=== PATIENT | male | born 1940 | race Caucasian/White ===

== ENCOUNTER 2022-07-09 10:52 | Inpatient (IN) | payer OTHER, SELFPAY ==
[2022-07-09] VITALS (12 sets, daily range): BP systolic 126–143; BP diastolic 64–80; PULSE 71–89; RESP 18–20; TEMP 36.6; O2SAT 87–92; BMI 21.2
--- NOTE | 2022-07-09 11:07 | ED_ITS ---
Documented by User: Minnie Bah MD 07/09/22 15:37 HPI - Extremity Problem General: Chief complaint: ER Hold Stated complaint: PITTING EDEMA Time Seen by Provider: 07/09/22 11:07 Source: patient History of Present Illness: This 82-year-old male with a history of COPD presents to the ER with bilateral pedal edema that he noticed on June 28 (12 days ago). It is not painful and there is no associated fever, nausea or vo miting. Patient reports that he gets short of breath on exertion. He does not use oxygen at home. It appears that he was seen in [place] a few weeks ago and was treated with Lasix. He reportedly signed out AMA. Patient denies cough or any other pertinent systemic symptoms. Associated symptoms: Deny chest pain Review of Systems Const: Denies: chills, body aches or change in appetite Eyes: Denies: change in vision or eye discharge ENMT: Denies: throat pain, dental pain or nasal discharge Card: Reports: edema (Bilateral pitting pedal edema.) and dyspnea on exertion; Denies: chest pain or lightheadedness : Denies: dysuria Musc: Denies: neck pain or back pain Neuro: Denies: headache(s) or weakness in extremities Psych: Denies: depression Sebas/Lymph: Denies: easy bruising All/Imm: Denies: urticaria, tongue swelling or facial swelling PFSH ED PFSH: Medical History (Updated 07/09/22 @ 14:52 by Miranda Carmichael MD) Atrial fibrillation Date of onset unknown but has been previously identified at outside facility Benign prostatic hyperplasia (BPH) with urinary urgency CAD (coronary artery disease) History of CABG at [place], [place] ~, possibly with prior stents CHF (congestive heart failure) First known clinical instance 06/27/2022 at outside facility Hypertension Nonspecific colitis 01/2022 descending and sigmoid colon per outside records Peripheral artery disease Surgical History (Updated 07/09/22 @ 14:45 by Miranda Carmichael MD) History of abdominal aortic aneurysm (AAA) repair History of appendectomy History of coronary artery bypass graft History of femoropopliteal bypass History of tonsillectomy Family History (Updated 07/09/22 @ 14:11 by Miranda Carmichael MD) Other Family history non-contributory Social History (Updated 07/09/22 @ 16:11 by Miranda Carmichael MD) Smoking and tobacco status: current every day smoker cigarettes Alcohol intake: never Substance/Drug Use: never Household members: none Marital status: / Marital status details: of 42 years, Carissa Walls, in June 2021 service: Yes branch: [employer] Pets and animals: No Additional social history: Family contact/person to notify is niece Dina (goes by Radha) [place] cell phone [phone] Physical Exam Const: COMMON NORMALS: no acute distress, patient oriented x3, no limitations and alert HENMT: COMMON NORMALS: normocephalic HEAD & SCALP: normocephalic Eye: COMMON NORMALS: EOMs intact bilaterally Neck/C-Spine: COMMON NORMALS: full ROM and supple Chest: COMMONS NORMALS: normal inspection of the chest Resp: COMMON NORMALS: normal respiratory effort, No retractions, No use of accessory muscles and clear to auscultation bilaterally AUSCULTATION: clear to auscultation bilaterally Cardio: COMMON NORMALS: regular rate, regular rhythm and No murmurs present (Cardio) RATE: regular rate RHYTHM: regular rhythm GI: COMMON NORMALS: Normal to inspection, nondistended, normoactive bowel sounds present and non-tender : COMMON NORMALS: Yes no CVA tenderness BLADDER/KIDNEY EXAM: Yes no CVA tenderness Back/Pelvis: COMMON NORMALS: no CVA tenderness and no thoracic nor lumbar tenderness Extremity: NARRATIVE EXTREMITY EXAM: Bilateral pitting pedal edema extending group home into the leg. No calf swelling or tenderness. Homans' sign is negative. GENERAL: Yes normal exam except as noted Neuro: COMMON NORMALS: patient oriented x3 and no focal motor deficits SENSORIUM/ORIENTATION: Yes alert Psych: COMMON NORMALS: mental status grossly normal and cooperative Course Vital Signs: Vital signs: Vital Signs Pulse Rate 71 07/09/22 16:39 Respiratory Rate 19 H 07/09/22 16:39 Blood Pressure 143/77 07/09/22 16:39 Pulse Oximetry 89 L 07/09/22 16:39 Oxygen Delivery Me thod 07/09/22 14:23 Oxygen Flow Rate 4 07/09/22 10:56 MDM - Extremity (Nontraumatic) Medical Decision Making Medical decision making: Patient presents with bilateral piting Pedal edema that started few weeks ago. He is hypoxic and requiring supplemental oxygen. He does not use oxygen at home. Chest x-ray reveals cardiomegaly and bilateral pleural effusion. BNP is over 31,000. Patient's presentation and findings are most consistent with CHF exacerbation. He tells me that he has no prior history of CHF. He will be admitted for further evaluation and management. Case discussed with Dr. Carmichael who accepted patient for admission. Lab Data 07/09/22 10:55 07/09/22 10:55 Radiology Impressions Chest X-Ray 07/09/22 11:28 IMPRESSION: 1. Cardiac enlargement with pulmonary vascular congestion and bibasal pleural effusions suggesting CHF. 2. Probable superimposed changes of emphysema and pulmonary fibrosis. Compressive atelectasis of the middle and lower lobes the right lung and probably the left lower lobe. Laboratory Results WBC 9.7 10^3/uL (4.0-10.0) 07/09/22 10:55 RBC 4.11 10^6/uL (4.1-5.3) 07/09/22 10:55 Hgb 10.5 g/dL (11.7-16.6) L 07/09/22 10:55 Hct 37.3 % (42.0-52.0) L 07/09/22 10:55 MCV 90.8 fl (80-94) 07/09/22 10:55 MCH 25.5 pg (28.0-34.0) L 07/09/22 10:55 MCHC 28.2 g/dL (30.0-36.0) L 07/09/22 10:55 RDW 16.1 % (12.1-15.1) H 07/09/22 10:55 Plt Count 210 10^3/cmm (130-400) 07/09/22 10:55 MPV 12.5 fL (7.4-10.4) H 07/09/22 10:55 Neut % (Auto) 83.3 % 07/09/22 10:55 Lymph % (Auto) 11.1 % 07/09/22 10:55 [place] % (Auto) 4.5 % 07/09/22 10:55 Eos % (Auto) 0.2 % 07/09/22 10:55 Baso % (Auto) 0.3 % 07/09/22 10:55 Neut # (Auto) 8.11 10^3/uL (1.8-7.7) H 07/09/22 10:55 Lymph # (Auto) 1.1 10^3/uL (0.8-4.8) 07/09/22 10:55 [place] # (Auto) 0.4 10^3/uL (0.2-0.9) 07/09/22 10:55 Eos # (Auto) 0.0 10^3/uL (0.0-0.8) 07/09/22 10:55 Baso # (Auto) 0.0 10^3/uL (0.0-0.1) 07/09/22 10:55 Nucleated RBC % (auto) 0 % 07/09/22 10:55 Nucleated RBCs # 0.0 /100WBC 07/09/22 10:55 Sodium 138 mmol/L (136-145) 07/09/22 10:55 Potassium 3.9 mmol/L (3.5-5.1) 07/09/22 10:55 Chloride 100 mmol/L (98-107) 07/09/22 10:55 Carbon Dioxide 26 mmol/L (22-29) 07/09/22 10:55 Anion Gap 15.9 (5-19) 07/09/22 10:55 BUN 17 mg/dL (8-23) 07/09/22 10:55 Creatinine 1.2 mg/dL (0.7-1.2) 07/09/22 10:55 GFR Calculation Not Reportable 07/09/22 10:55 Glucose 118 mg/dL (65-115) H 07/09/22 10:55 Calculated Osmolality 289 mOsm/kg (285-295) 07/09/22 10:55 Calcium 9.2 mg/dL (8.5-10.5) 07/09/22 10:55 Total Bilirubin 0.4 mg/dL (0.15-1.2) 07/09/22 10:55 AST 12 U/L (0-40) 07/09/22 10:55 ALT < 5 U/L (0-41) 07/09/22 10:55 Alkaline Phosphatase 133 U/L (40-130) H 07/09/22 10:55 Troponin T Gen 5 ng/L 53 ng/L (0-15) H 07/09/22 13:02 NT-Pro-B Natriuret Pep 45711 pg/mL (0-450) H 07/09/22 10:55 Total Protein 7.5 g/dL (6.6-8.7) 07/09/22 10:55 Albumin 4.4 g/dL (3.5-5.2) 07/09/22 10:55 Globulin 3.1 g/dL (1.3-4.6) 07/09/22 10:55 Urine Color Yellow (Yellow) 07/09/22 13:02 Urine Appearance Clear (CLEAR) 07/09/22 13:02 Urine pH 5 (5-7) 07/09/22 13:02 Ur Specific Roundup 1.015 (1.005-1.030) 07/09/22 13:02 Urine Protein Neg (Negative) 07/09/22 13:02 Urine Glucose (UA) Norm (Normal) 07/09/22 13:02 Urine Ketones Negative (Negative) 07/09/22 13:02 Urine Blood 2+ (Negative) H 07/09/22 13:02 Urine Nitrate Negative (Negative) 07/09/22 13:02 Urine Bilirubin Neg (Negative) 07/09/22 13:02 Urine Urobilinogen Norm mg/dL (Negative) 07/09/22 13:02 Ur Leukocyte Esterase Negative (Negative) 07/09/22 13:02 Urine RBC 10-15 /hpf (0-2) H 07/09/22 13:02 Urine WBC 0-4 /hpf (0-5) H 07/09/22 13:02 Ur Squamous Epith Cells None /hpf (0-5) 07/09/22 13:02 Amorphous Sediment Not Reportable 07/09/22 13:02 Urine Bacteria Trace /hpf (NONE) 07/09/22 13:02 EKG Data EKG 1: Interpretation: Sinus rhythm with PVCs, rate of 66, normal axis, no STEMI. Discharge Plan Discharge Patient Disposition: Admitted As Inpatient Admit Provider: Miranda Carmichael Clinical Impression: Acute exacerbation of CHF (congestive heart failure) Condition: Stable Coding Level of Care Code ED Substation Operator Chief for Chg Fwd Exam Comprehensive Documented by User: Miranda Carmichael MD 07/09/22 17:23 HPI - Extremity Problem General: Chief complaint: ER Hold Stated complaint: PITTING EDEMA Time Seen by Provider: 07/09/22 11:07 History of Present Illness: This 82-year-old male with a history of COPD presents to the ER with bilateral pedal edema that he noticed on June 28 (12 days ago). It is not painful and there is no associated fever, nausea or vomiting. Patient reports that he gets short of breath on exertion. He does not use oxygen at home. It appears that he was seen in [place] a few weeks ago and was treated with Lasix. He reportedly signed out AMA. Patient denies cough or any other pertinent systemic symptoms. [facility] ED PFSH: Medical History (Updated 07/09/22 @ 14:52 by Miranda Carmichael MD) Atrial fibrillation Date of onset unknown but has been previously identified at outside facility Benign prostatic hyperplasia (BPH) with urinary urgency CAD (coronary artery disease) History of CABG at [place], [place] ~, possibly with prior stents CHF (congestive heart failure) First known clinical instance 06/27/2022 at outside facility Hypertension Nonspecific colitis 01/2022 descending and sigmoid colon per outside records Peripheral artery disease Surgical History (Updated 07/09/22 @ 14:45 by Miranda Carmichael MD) History of abdominal aortic aneurysm (AAA) repair History of appendectomy History of coronary artery bypass graft History of femoropopliteal bypass History of tonsillectomy Family History (Updated 07/09/22 @ 14:11 by Miranda Carmichael MD) Other Family history non-contributory Social History (Updated 07/09/22 @ 16:11 by Miranda Carmichael MD) Smoking and tobacco status: current every day smoker cigarettes Alcohol intake: never Substance/Drug Use: never Household members: none Marital status: / Marital status details: of 42 years, Carissa Walls, in June 2021 service: Yes branch: [employer] Pets and animals: No Additional social history: Family contact/person to notify is louise Arroyo (goes by Radha) [place] cell phone [phone] Course ED course: I, Dr Carmichael, was inadvertently added as a cosigner to this ED note. While I assumed care for an inpatient admission for Mr Cope, I was not involved in the emergency room evaluation and treatment of the patient otherwise. I did not provide any clinical care or guidance,, nor add to the content of this note prior to being notified about admission at approximately 12:40 PM today 07/09/2022. Any information that shows is being documented by me is shared documentation functionality of the system related to ED care. Vital Signs: Vital signs: Vital Signs Pulse Rate 71 07/09/22 16:39 Respiratory Rate 19 H 07/09/22 16:39 Blood Pressure 143/77 07/09/22 16:39 Pulse Oximetry 89 L 07/09/22 16:39 Oxygen Delivery Me thod 07/09/22 14:23 Oxygen Flow Rate 4 07/09/22 10:56 MDM - Extremity (Nontraumatic) Lab Data 07/09/22 10:55 07/09/22 10:55 Radiology Impressions Chest X-Ray 07/09/22 11:28 IMPRESSION: 1. Cardiac enlargement with pulmonary vascular congestion and bibasal pleural effusions suggesting CHF. 2. Probable superimposed changes of emphysema and pulmonary fibrosis. Compressive atelectasis of the middle and lower lobes the right lung and probably the left lower lobe. Laboratory Results WBC 9.7 10^3/uL (4.0-10.0) 07/09/22 10:55 RBC 4.11 10^6/uL (4.1-5.3) 07/09/22 10:55 Hgb 10.5 g/dL (11.7-16.6) L 07/09/22 10:55 Hct 37.3 % (42.0-52.0) L 07/09/22 10:55 MCV 90.8 fl (80-94) 07/09/22 10:55 MCH 25.5 pg (28.0-34.0) L 07/09/22 10:55 MCHC 28.2 g/dL (30.0-36.0) L 07/09/22 10:55 RDW 16.1 % (12.1-15.1) H 07/09/22 10:55 Plt Count 210 10^3/cmm (130-400) 07/09/22 10:55 MPV 12.5 fL (7.4-10.4) H 07/09/22 10:55 Neut % (Auto) 83.3 % 07/09/22 10:55 Lymph % (Auto) 11.1 % 07/09/22 10:55 [place] % (Auto) 4.5 % 07/09/22 10:55 Eos % (Auto) 0.2 % 07/09/22 10:55 Baso % (Auto) 0.3 % 07/09/22 10:55 Neut # (Auto) 8.11 10^3/uL (1.8-7.7) H 07/09/22 10:55 Lymph # (Auto) 1.1 10^3/uL (0.8-4.8) 07/09/22 10:55 [place] # (Auto) 0.4 10^3/uL (0.2-0.9) 07/09/22 10:55 Eos # (Auto) 0.0 10^3/uL (0.0-0.8) 07/09/22 10:55 Baso # (Auto) 0.0 10^3/uL (0.0-0.1) 07/09/22 10:55 Nucleated RBC % (auto) 0 % 07/09/22 10:55 Nucleated RBCs # 0.0 /100WBC 07/09/22 10:55 Sodium 138 mmol/L (136-145) 07/09/22 10:55 Potassium 3.9 mmol/L (3.5-5.1) 07/09/22 10:55 Chloride 100 mmol/L (98-107) 07/09/22 10:55 Carbon Dioxide 26 mmol/L (22-29) 07/09/22 10:55 Anion Gap 15.9 (5-19) 07/09/22 10:55 BUN 17 mg/dL (8-23) 07/09/22 10:55 Creatinine 1.2 mg/dL (0.7-1.2) 07/09/22 10:55 GFR Calculation Not Reportable 07/09/22 10:55 Glucose 118 mg/dL (65-115) H 07/09/22 10:55 Calculated Osmolality 289 mOsm/kg (285-295) 07/09/22 10:55 Calcium 9.2 mg/dL (8.5-10.5) 07/09/22 10:55 Total Bilirubin 0.4 mg/dL (0.15-1.2) 07/09/22 10:55 AST 12 U/L (0-40) 07/09/22 10:55 ALT < 5 U/L (0-41) 07/09/22 10:55 Alkaline Phosphatase 133 U/L (40-130) H 07/09/22 10:55 Troponin T Gen 5 ng/L 53 ng/L (0-15) H 07/09/22 13:02 NT-Pro-B Natriuret Pep 17131 pg/mL (0-450) H 07/09/22 10:55 Total Protein 7.5 g/dL (6.6-8.7) 07/09/22 10:55 Albumin 4.4 g/dL (3.5-5.2) 07/09/22 10:55 Globulin 3.1 g/dL (1.3-4.6) 07/09/22 10:55 Urine Color Yellow (Yellow) 07/09/22 13:02 Urine Appearance Clear (CLEAR) 07/09/22 13:02 Urine pH 5 (5-7) 07/09/22 13:02 Ur Specific Roundup 1.015 (1.005-1.030) 07/09/22 13:02 Urine Protein Neg (Negative) 07/09/22 13:02 Urine Glucose (UA) Norm (Normal) 07/09/22 13:02 Urine Ketones Negative (Negative) 07/09/22 13:02 Urine Blood 2+ (Negative) H 07/09/22 13:02 Urine Nitrate Negative (Negative) 07/09/22 13:02 Urine Bilirubin Neg (Negative) 07/09/22 13:02 Urine Urobilinogen Norm mg/dL (Negative) 07/09/22 13:02 Ur Leukocyte Esterase Negative (Negative) 07/09/22 13:02 Urine RBC 10-15 /hpf (0-2) H 07/09/22 13:02 Urine WBC 0-4 /hpf (0-5) H 07/09/22 13:02 Ur Squamous Epith Cells None /hpf (0-5) 07/09/22 13:02 Amorphous Sediment Not Reportable 07/09/22 13:02 Urine Bacteria Trace /hpf (NONE) 07/09/22 13:02 Discharge Plan Discharge Patient Disposition: Admitted As Inpatient Admit Provider: Miranda Carmichael Clinical Impression: Acute exacerbation of CHF (congestive heart failure) Condition: Stable Coding Level of Care Code ED Substation Operator Chief for Chg Fwd Exam Comprehensive
--- NOTE | 2022-07-09 11:28 | XR_ITS ---
WS: [id number] Exam: XR chest 1V portable [id number] Date/Time of Exam: 07/09/2022 11:33 AM Reason For Exam: bialteral pedal edema No priors. There is cardiac enlargement with pulmonary vascular congestion and bibasal pleural effusions suggest ing CHF. Superimposed interstitial changes and bullous emphysema noted. Signs of median sternotomy. N o pneumothorax. The mediastinum is not widened. Bony structures are intact. XR/XR chest 1V portable [id number] IMPRESSION: 1. Cardiac enlargement with pulmonary vascular congestion and bibasal pleural e ffusions suggesting CHF. 2. Probable superimposed changes of emphysema and pulmonary fibrosis. Compressi ve atelectasis of the middle and lower lobes the right lung and probably the l eft lower lobe.
[2022-07-09] MEDS: FUROsemide 10 mg/mL SDV 4mL 60 MG IVP (11:38)
[2022-07-09 11:45] LABS: Basophils % 0.3 %; Eosinophils % 0.2 %; Hematocrit 37.3 % (42.0-52.0); Hemoglobin 10.5 g/dL (11.7-16.6); Lymphocytes # 1.1 10^3/uL (0.8-4.8); Lymphocytes % 11.1 %; Mean Corpuscular HGB Conc 28.2 g/dL (30.0-36.0); Mean Corpuscular Hemoglobin 25.5 pg (28.0-34.0); Mean Corpuscular Volume 90.8 fl (80-94); Mean Platelet Volume 12.5 fL (7.4-10.4); Monocytes # 0.4 10^3/uL (0.2-0.9); Monocytes % 4.5 %; Neutrophils # 8.11 10^3/uL (1.8-7.7); Neutrophils % 83.3 %; Nucleated Red Blood Cells % 0 %; Platelet Count 210 10^3/cmm (130-400); Red Blood Count 4.11 10^6/uL (4.1-5.3); Red Cell Distribution Width 16.1 % (12.1-15.1); White Blood Count 9.7 10^3/uL (4.0-10.0)
[2022-07-09 12:09] LABS: Alanine Aminotransferase < 5 U/L (0-41); Albumin Level 4.4 g/dL (3.5-5.2); Alkaline Phosphatase 133 U/L (40-130); Anion Gap 15.9 (5-19); Aspartate Amino Transferase 12 U/L (0-40); Blood Urea Nitrogen 17 mg/dL (8-23); Calcium 9.2 mg/dL (8.5-10.5); Carbon Dioxide 26 mmol/L (22-29); Chloride 100 mmol/L (98-107); Globulin 3.1 g/dL (1.3-4.6); Glucose 118 mg/dL (65-115); Osmolality Calculated 289 mOsm/kg (285-295); Potassium 3.9 mmol/L (3.5-5.1); Sodium 138 mmol/L (136-145); Total Bilirubin 0.4 mg/dL (0.15-1.2); Total Protein 7.5 g/dL (6.6-8.7)
--- NOTE | 2022-07-09 12:41 | ECG_ITS ---
[facility] Test Date: 2022-07-09 Pat Name: Wilfrido Anderson Department: Room: Gender: Male Procedure Analyst: : 1940 Requested By: Minnie Garcia Order Number: [id number] Nica MD: Camilo Garner M.D. Measurements Intervals [place] Rate: 66 P: 0 CA: 0 QRS: 110 QRSD: 143 T: -14 QT: 494 QTc: 521 Interpretive Statements ATRIAL FIBRILLATION WITH ABERRANT CONDUCTION OR VENTRICULAR PREMATURE COMPLEXES RIGHT BUNDLE BRANCH BLOCK [120+ ms QRS DURATION, UPRIGHT V1, 40+ ms S IN I/aVL/V4/V5/V6] LEFT POSTERIOR FASCICULAR BLOCK [QRS AXIS > 109, INFERIOR Q] No previous ECG available for comparison Electronically Signed On 07-10-2022 7:41:46 ENGINEERING ASSISTANT by Camilo Garner M.D. [id number]
[2022-07-09 13:32] LABS: Troponin T (5th) Once 53 ng/L (0-15)
--- NOTE | 2022-07-09 13:32 | P.HP_ITS ---
Providers/Chief Complaint Admitting Physician: Miranda Carmichael MD Primary Care Provider: Jennie Cruz MD Chief Complaint: Pitting edema History of Present Illness Wilfrido Anderson is a 82 year old male who presented to the emergency room at the direction of the [place] clinic here in [place]. On June 27, patient presented originally to [facility] in [place], [place]. On that date he was complaining of not being able to get his pants on because of swelling in his legs and also reported black stools. He had episode of diarrhea in ED which was hemocult positive. His hemoglobin was found to be 6.2. He was admitted to the hospital and received 2 units of packed red blood cells, a unit of FFP as well as a unit of platelets. Platelets were not low on available labs. Posttransfusion hemoglobin was 8.3. His troponin was elevated at 0.077- 0.097, felt to be secondary to demand ischemia in the setting of anemia. BNP noted to be 21,400. He was hypoxic at the time and required oxygen therapy. He received Lasix in addition to blood products. Plan had been for an echocardiogram and general surgery consultation however patient opted to leave against medical advice before these could be performed. Outside records were obtained and reviewed. Evidently patient was following up at the [place] hospital today from that hospital stay because of continued lower extremity edema. I do not know if he was actually seen by a provider at the [facility] clinic but he was directed to the emergency room for further evaluation and care based on his presentation and complaints. The swelling has been going on for several weeks. He has no personal history of heart failure though diagnosis was suspected at [place]. He does have a history of coronary artery disease with bypass surgery in the at the [facility] in [facility]. He describes having a AAA repair and likely femoropopliteal bypass as well. Chronic medications have included a mlodipine and lisinopril along with aspirin therapy. He gets short of breath with minimal exertion. He describes 4-5 times a night nocturia. Does not really complain of orthopnea but does describe waking up a lot at night and not sleeping well. He has urinary urgency and frequency that has been escalating but denies other difficulties with his urinary stream. He denies any chest pain. No complaints of pain in his legs although the swelling is uncomfortable. No scrotal edema. He has had a nonproductive cough. No fever or chills. No nausea or vomiting. He continues to be constipated but denies continued melena. In the emergency room today patient was noted to to have bilateral lower extremity edema. His BNP was 31,595. Twelve-lead EKG showed atrial fibrillation at 66 bpm. I will note that review of records from [place] indicates that he had atrial fibrillation on EKGs at that time as well as on at least one prior EKG. Patient himself denies any knowledge of atrial fib rillation or heart failure. He does not recall the last time that he had any cardiac testing. Vital signs showed oxygen saturation as low as 87% on room air. Chest x-ray showed pulmonary edema with bilateral effusions and cardiomegaly. Patient was placed on 4 L of oxygen and given a dose of IV Lasix. Request was made for admission to hospitalist service. Review of Systems General: Reports: Other (As noted in HPI above) Eyes: Reports: blurry vision (Does not see well) ENMT: Reports: nasal congestion; Denies: throat pain Neuro: Reports: weakness in extremities (Generalized rather than focal); Denies: numbness in extremities Sebas/Lymph: Denies: easy bruising or easy bleeding Medications/Allergies Home Medications Medication Instructions Recorded Confirmed Last Taken Type amlodipine 10 mg tablet 10 mg PO DAILY 07/09/22 07/09/22 07/08/22 History aspirin 325 mg tablet 325 mg PO DAILY 07/09/22 07/09/22 07/08/22 History lisinopril 40 mg tablet 20 mg PO BID 07/09/22 07/09/22 07/08/22 History Allergies Allergy/AdvReac Type Severity Reaction Status Date / Time No Known Allergies Allergy Verified 07/09/22 11:38 PFSH Acute PFSH: Medical History (Updated 07/09/22 @ 14:52 by Miranda Carmichael MD) Atrial fibrillation Date of onset unknown but has been previously identified at outside facility Benign prostatic hyperplasia (BPH) with urinary urgency CAD (coronary artery disease) History of CABG at [place], [place] ~, possibly with prior stents CHF (congestive heart failure) First known clinical instance 06/27/2022 at outside facility Hypertension Nonspecific colitis 01/2022 descending and sigmoid colon per outside records Peripheral artery disease Surgical History (Updated 07/09/22 @ 14:45 by Miranda Carmichael MD) History of abdominal aortic aneurysm (AAA) repair History of appendectomy History of coronary artery bypass graft History of femoropopliteal bypass History of tonsillectomy Family History (Updated 07/09/22 @ 14:11 by Miranda Carmichael MD) Other Family history non-contributory Social History (Updated 07/09/22 @ 16:11 by Miranda Carmichael MD) Smoking and tobacco status: current every day smoker cigarettes Alcohol intake: never Substance/Drug Use: never Household members: none Marital status: / Marital status details: of 42 years, Carissa Walls, in June 2021 service: Yes branch: [employer] Pets and animals: No Additional social history: Family contact/person to notify is louise Arroyo (goes by Radha) [place] cell phone [phone] Vitals/I&O/Wt Last Vital Signs Pulse 82 07/09/22 10:56 Resp 18 07/09/22 10:56 BP 126/74 07/09/22 10:56 Pulse Ox 89 L 07/09/22 10:56 O2 Del Method 07/09/22 10:56 O2 Flow Rate 4 07/09/22 10:56 Weight last 48 hrs Weight 67.585 kg Physical Exam Narrative: Patient is awake and alert, able to provide history though some details are unknown. Mildly hard of hearing. Normocephalic, extraocular movements are intact, pupils are equal bilaterally, arcus senilis noted. Nasopharynx with some clear rhinorrhea. Oropharynx with moist mucous membranes, fair dentition. Neck is supple, JVD to the earlobe. Lungs with musical expiratory wheezes that do not clear with coughing, decreased right base more so than left base. Tachypnea noted after speaking in full sentences with some pursed lip breathing. No retractions. Cardiovascular exam reveals an irregular rhythm. Heart sounds are otherwise distant. Abdomen is soft, nontender with positive bowel sounds. Normal uncircumcised phallus. 4+ pitting edema appreciable to the sacral area posteriorly but does not involve the scrotum. Symmetric calves with no calf tenderness. Scattered bruises and areas of chronically sun exposed skin noted. [place] mucous membranes. Face is symmetric, speech clear, handgrip equal, no involuntary movements noted. Data 07/09/22 10:55 07/09/22 10:55 Other Labs: Radiology Impressions Chest X-Ray 07/09/22 11:28 IMPRESSION: 1. Cardiac enlargement with pulmonary vascular congestion and bibasal pleural effusions suggesting CHF. 2. Probable superimposed changes of emphysema and pulmonary fibrosis. Compressive atelectasis of the middle and lower lobes the right lung and probably the left lower lobe. Laboratory Results WBC 9.7 10^3/uL (4.0-10.0) 07/09/22 10:55 RBC 4.11 10^6/uL (4.1-5.3) 07/09/22 10:55 Hgb 10.5 g/dL (11.7-16.6) L 07/09/22 10:55 Hct 37.3 % (42.0-52.0) L 07/09/22 10:55 MCV 90.8 fl (80-94) 07/09/22 10:55 MCH 25.5 pg (28.0-34.0) L 07/09/22 10:55 MCHC 28.2 g/dL (30.0-36.0) L 07/09/22 10:55 RDW 16.1 % (12.1-15.1) H 07/09/22 10:55 Plt Count 210 10^3/cmm (130-400) 07/09/22 10:55 MPV 12.5 fL (7.4-10.4) H 07/09/22 10:55 Neut % (Auto) 83.3 % 07/09/22 10:55 Lymph % (Auto) 11.1 % 07/09/22 10:55 [place] % (Auto) 4.5 % 07/09/22 10:55 Eos % (Auto) 0.2 % 07/09/22 10:55 Baso % (Auto) 0.3 % 07/09/22 10:55 Neut # (Auto) 8.11 10^3/uL (1.8-7.7) H 07/09/22 10:55 Lymph # (Auto) 1.1 10^3/uL (0.8-4.8) 07/09/22 10:55 [place] # (Auto) 0.4 10^3/uL (0.2-0.9) 07/09/22 10:55 Eos # (Auto) 0.0 10^3/uL (0.0-0.8) 07/09/22 10:55 Baso # (Auto) 0.0 10^3/uL (0.0-0.1) 07/09/22 10:55 Nucleated RBC % (auto) 0 % 07/09/22 10:55 Nucleated RBCs # 0.0 /100WBC 07/09/22 10:55 Sodium 138 mmol/L (136-145) 07/09/22 10:55 Potassium 3.9 mmol/L (3.5-5.1) 07/09/22 10:55 Chloride 100 mmol/L (98-107) 07/09/22 10:55 Carbon Dioxide 26 mmol/L (22-29) 07/09/22 10:55 Anion Gap 15.9 (5-19) 07/09/22 10:55 BUN 17 mg/dL (8-23) 07/09/22 10:55 Creatinine 1.2 mg/dL (0.7-1.2) 07/09/22 10:55 GFR Calculation Not Reportable 07/09/22 10:55 Glucose 118 mg/dL (65-115) H 07/09/22 10:55 Calculated Osmolality 289 mOsm/kg (285-295) 07/09/22 10:55 Calcium 9.2 mg/dL (8.5-10.5) 07/09/22 10:55 Total Bilirubin 0.4 mg/dL (0.15-1.2) 07/09/22 10:55 AST 12 U/L (0-40) 07/09/22 10:55 ALT < 5 U/L (0-41) 07/09/22 10:55 Alkaline Phosphatase 133 U/L (40-130) H 07/09/22 10:55 Troponin T Gen 5 ng/L 53 ng/L (0-15) H 07/09/22 13:02 NT-Pro-B Natriuret Pep 89457 pg/mL (0-450) H 07/09/22 10:55 Total Protein 7.5 g/dL (6.6-8.7) 07/09/22 10:55 Albumin 4.4 g/dL (3.5-5.2) 07/09/22 10:55 Globulin 3.1 g/dL (1.3-4.6) 07/09/22 10:55 Urine Color Yellow (Yellow) 07/09/22 13:02 Urine Appearance Clear (CLEAR) 07/09/22 13:02 Urine pH 5 (5-7) 07/09/22 13:02 Ur Specific [place] 1.015 (1.005-1.030) 07/09/22 13:02 Urine Protein Neg (Negative) 07/09/22 13:02 Urine Glucose (UA) Norm (Normal) 07/09/22 13:02 Urine Ketones Negative (Negative) 07/09/22 13:02 Urine Blood 2+ (Negative) H 07/09/22 13:02 Urine Nitrate Negative (Negative) 07/09/22 13:02 Urine Bilirubin Neg (Negative) 07/09/22 13:02 Urine Urobilinogen Norm mg/dL (Negative) 07/09/22 13:02 Ur Leukocyte Esterase Negative (Negative) 07/09/22 13:02 Urine RBC 10-15 /hpf (0-2) H 07/09/22 13:02 Urine WBC 0-4 /hpf (0-5) H 07/09/22 13:02 Ur Squamous Epith Cells None /hpf (0-5) 07/09/22 13:02 Amorphous Sediment Not Reportable 07/09/22 13:02 Urine Bacteria Trace /hpf (NONE) 07/09/22 13:02 EKG 1: I personally reviewed and interpreted this EKG as follows: My Interpretation: Atrial fibrillation at 66 bpm without any acute ST segment changes, premature contractions noted Other data: Laboratory Tests 07/09/22 15:46 ABG pH 7.46 H ABG pCO2 39.3 ABG pO2 50.7 L ABG HCO3 28.0 H O2 Delivery Device Nc O2 Liters/Min 5.0 A&P Assessment and plan (1) CHF (congestive heart failure): New onset diagnosis, type unknown. EF unknown. History of coronary artery disease. No current or recent complaints of chest pain or pleurisy but significant dyspnea on exertion, edema and associated hypoxemia. Also describes nocturia and urinary frequency/urgency. Longtime smoker who does not have a formal diagnosis of COPD but it is within the differential as a contributing factor to hypoxemia. Similar symptoms and findings were identified when patient presented to [facility] on June 27 of this year. Patient does not recall the last time he had any form of cardiac testing. (2) Normocytic anemia: Current hemoglobin improved from recent low of 6.2 noted on June 27, 2022 when patient presented to [facility]. Records indicate that stool was Hemoccult positive. Patient describes melena. He received 2 units of packed red blood cells, a unit of FFP and a unit of platelets with posttransfusion hemoglobin of 8.3. Patient does not describe known potential source of blood loss beyond melena. Urine today with some microscopic hematuria. Patient does not recall last colonoscopy. Outside records do indicate that he had a nonspecific colitis noted during a hospitalization in January 2022 involving the descending and sigmoid colon. He has been on aspirin outpatient for some time. No known kidney disease. (3) Atrial fibrillation: Unclear duration though documented as present in outside records from earlier this month with a notation that at least one prior EKG had shown similar find ings. Rate controlled. Review of limited available [place] records indicates that he has had bradycardia in the past although details are unknown. Not on any chronic rate controlling agents or anticoagulation. Given anemia and heme positive stools requiring transfusion earlier this month, poor candidate for initiation of anticoagulation currently. (4) CAD (coronary artery disease): History of previous coronary artery bypass graft and possibly stents. Last known cardiac testing occurred at the [facility] in [facility] quite a few years ago. Patient denies any recent episodes of chest pain but has had progressively worsening dyspnea on exertion. Had some troponin elevation at outside facility June 27 and without significant delta and no EKG changes indicated and records reviewed. Does not follow regularly with a anesthesiology tech. Also with known history of peripheral artery disease and has had prior AAA repair and/or femoral-popliteal bypass based on available history. (5) Hypertension: Chronically on lisinopril and amlodipine. Currently with adequate control. (6) Benign prostatic hyperplasia (BPH) with urinary urgency: Based on patient's history has prostatic hypertrophy with urinary urgency and recent frequency. (7) Nicotine dependence, cigarettes, with other nicotine-induced disorders: Longstanding smoker of cigarettes, not interested in quitting. Does not carry a formal diagnosis of COPD, never used inhalers or required oxygen therapy in the past. Plan Microscopic hematuria of unclear current significance Borderline blood sugar without history of diabetes Lives alone Inpatient admission Telemetry monitoring IV diuresis with close monitoring of urine output and renal function Potassium supplementation Strict I's and O's and daily weights Patient is currently declining Maloney catheter but will consider; given degree of edema and current hypoxemia Maloney catheter would facilitate not only accurate monitoring of renal function and urine output but also help decrease exertion contributing to more acute drops in oxygen saturation with exertion presently Echocardiogram Serial cardiac enzymes were not initially ordered however timing of initial blood draw and subsequent first troponin order equated to 2 hours. I have placed individual orders for what will end up being a 0, 2-hour and 6-hour rough equivalent though we will have to calculate delta manually. Check lipid panel, A1c, TSH Serial electrolytes Continue lower dose of home ELGIN inhibitor presently Hold home amlodipine Monitor blood pressures for need to adjust therapy further Given recent heme positive stools, holding home aspirin at the moment; patient also a poor candidate for long-term anticoagulation until further monitoring or evaluation of GI tract for source of blood loss recently identified at outside facility Check TIBC, Hemoccult and baseline coagulation studies Monitor hemoglobin for drop and for signs of blood loss Oxygen therapy as needed to maintain oxygen saturations, weaning as able; current presumption is that hypoxemia is from degree of pulmonary edema though will need to monitor closely for improvement with diuresis. Could have a component of chronic hypoxemia related to undiagnosed COPD. Also within the differential is PE though patient a poor candidate presently for full anticoagulation. Check D-dimer If oxygen saturation does not improve with diuresis can consider more focused evaluation and treatment Breathing treatments if needed Nicotine patch has been ordered although patient has declined Start Flomax Bladder scan for baseline evaluation of urinary retention Follow-up pending urine culture Current complaints of urinary frequency and urgency are consistent with degree of fluid overload. No complaints of dysuria, fever nor elevation in white count so antibiotics have not been initiated for finding of microscopic hematuria. Stool softeners and laxatives if needed PPI for GI prophylaxis, particularly in light of recent need for transfusion and chronic aspirin use SCDs for DVT prophylaxis; no pharmacological DVT prophylaxis currently secondary to need for transfusion and hemoglobin as low as 6 earlier this month at an outside facility Supportive care otherwise Findings, concerns and treatment plans as outlined here have been reviewed with Mr. Flores he has been given an opportunity to ask questions. [facility] and possibly with cardiology locally. Mr. Anderson may require oxygen therapy upon discharge if he would be agreeable. Mr. Anderson had a recent suboptimal experience at an outside facility and stressed the importance of communication from providers regarding findings, testing and treatment in a way that he can understand as well as opportunities to ask questions. In terms of CODE STATUS, Mr. Anderson wishes to be ALLOWED NATURAL should his heart quit beating or if he were to require intubation and mechanical venti lation. He does not want aggressive life-saving interventions, especially if he is not able to provide information about whether or not he would want. He has reviewed this with his niece Radha Lord (phone number notated above and social history) whom he states has paperwork in place to make decisions for him should he not be able to. Attestations Medical Necessity Statement*: Anticipated stay greater than two midnights in this 82-year-old gentleman with clinically significant volume overload as described associated with hypoxemia and shortness of breath. He has a known history of coronary artery disease and a very recent indication of GI blood losses and significant anemia for which he received transfusion. He is not chronically on any form of diuretic, has not had any recent cardiac testing, and has been recently hospitalized at an outside facility with similar findings not further evaluated due to patient leaving facility. He requires inpatient monitoring, oxygen therapy, IV diuresis, further cardiac evaluation and other care as described. Coding Level of Care Code 09705 High MDM includes risk/complexity, reviewing previous or external records ([place] 06/27/22 admit and [facility] patient), reviewing test results, ordering lab/other test(s) (multiple as indicated above) and independently interpretating test(s) (not separately recorded) (EKG) and High Time for a total of 85 minutes, includes reviewing past or interval history, examining/interviewing patient, placing orders, counseling patient/family/other support, updating patient/family/other support, discussing plan of care with staff and documenting encounter Diagnoses CHF (congestive heart failure) I50.9 Normocytic anemia D64.9 Atrial fibrillation I48.91 CAD (coronary artery disease) I25.10 Hypertension I10 Benign prostatic hyperplasia (BPH) with urinary urgency N40.1; R39.15 Nicotine dependence, cigarettes, with other nicotine-induced disorders F17.218
[2022-07-09 13:50] LABS: Add Urine Microscopic? YES; Bilirubin Urine Neg (Negative); Blood Urine 2+ (Negative); Glucose Urine UA Norm (Normal); Ketones Urine Negative (Negative); Leukocyte Esterase Urine Negative (Negative); Nitrate Urine Negative (Negative); Protein Urine Neg (Negative); Specific Gravity, Urine 1.015 (1.005-1.030); Urine Appearance Clear (CLEAR); Urine Color Yellow (Yellow); Urobilinogen Urine Norm (Negative); pH Urine 5 (5-7)
[2022-07-09 13:51] LABS: Add Urine Culture? Yes; Bacteria Urine TRACE /hpf; WBC Urine 0-4 /hpf (0-5)
--- NOTE | 2022-07-09 15:16 | PC.NURSE ---
pt report called to Hussain SOLIS
[2022-07-09 15:57] LABS: ABG PCO2 39.3 mmHg (35-45); ABG PH Result 7.46 (7.35-7.45); Arterial Blood Gas Hematocrit 28.6 % (42-52); Base Excess ABG 3.9 mmol/L (-2.0-2.0); Blood Gas Allen Test Pos; Blood Gas Operator Identificat WALCI; Blood Gas Sample Site Radial, right; Blood Gas Sample Type Arterial; Oxygen Device NC; PO2 ABG 50.7 mmHg (80.0-100.0)
--- NOTE | 2022-07-09 16:05 | USCV_ITS ---
Wilfrido Anderson Age: 82 Gender: M : 1940 Exam Date: 07/09/2022 17:06 Ordering Phys: Miranda Carmichael MD Technologist: Tysno Redd Exam Location: [facility] Indication: new onset chf, hx cad/cabg BP: 134 / 80 HR: 79 Rhythm: Sinus Technical Quality: Adequate MEASUREMENTS (Male / Female) Normal Values 2D ECHO LV Diastolic Diameter PLAX 5.6 cm 4.2 - 5.9 / 3.9 - 5.3 cm LV Systolic Diameter PLAX 3.9 cm IVS Diastolic Thickness 0.8 cm 0.6 - 1.0 / 0.6 - 0.9 cm IVS Systolic Thickness 1.3 cm LVPW Diastolic Thickness 1.0 cm 0.6 - 1.0 / 0.6 - 0.9 cm LVPW Systolic Thickness 1.6 cm LVOT Diameter 2.0 cm LV Ejection Fraction 2D Teich 58.1 % LV Ejection Fraction MOD 2C 41.5 % LV Ejection Fraction 2C AL 43.2 % LA Diameter 4.5 cm LA Width 4.0 cm LA Height 5.3 cm RA Width 3.8 cm RA Height 5.2 cm Aorta at Sinotubular Diameter 2.3 cm IVC Diameter 2.0 cm M-MODE Aortic Annulus Diameter 2.8 cm LA Ao Ratio MM 1.4 MV E Point Septal Separation 1.4 cm DOPPLER AV Peak Velocity 132.3 cm/s LVOT Peak Velocity 89.0 cm/s AV Area Cont Eq vti 2.4 cm squared AV Area Cont Eq pk 2.1 cm squared MV Peak Velocity 137.0 cm/s MV Area PHT 9.2 cm squared Mitral E to A Ratio 2.4 MV E' Velocity 54.5 cm/s Mitral E to MV E' Ratio 11.6 Mitral E to LV E' Lateral Ratio 10.3 Mitral E to LV E' Septal Ratio 13.5 TR Peak Velocity 307.5 cm/s TR Peak Gradient 37.8 mmHg TR Mean Velocity 231.2 cm/s TR Mean Gradient 23.1 mmHg TR Velocity Time Integral 90.7 cm Right Atrial Pressure 3.0 mmHg Pulmonary Artery Systolic Pressu 40.8 mmHg PV Peak Velocity 74.0 cm/s RV Acceleration Time 0.1 s RV Ejection Time 0.3 s RV AcT/ET 0.4 FINDINGS Left Ventricle Left ventricle is normal size. LV systolic function is mildly reduced with EF of 40-45%. Mild global hypokinesis seen.Mild to moderate hypokinesis of the anterior and anterolateral lim seen Right Ventricle Mildly hypokinetic Right Atrium Normal in size Left Atrium Normal in size Mitral Valve Structurally normal mitral valve. Mild to moderate mitral regurgitation Aortic Valve Aortic valve is thickened and calcified. No significant stenosis. Mild aortic regurgitation Tricuspid Valve Mild tricuspid regurgitation. RVSP is 40 to 45 mmHg. This is consistent with mild pulmonary hypertension Pulmonic Valve Not well-visualized. Mild to moderate pulmonic regurgitation is seen Pericardium Trace pericardial effusion is seen Aorta Normal in size IVC Appears to be normal CONCLUSIONS LV systolic function is mildly reduced with EF 40 to 45%. Mild to moderate hypokinesis of anterior and anterolateral lim is seen. Right ventricle is mildly hypokinetic. Mild to moderate mitral regurgitation Mild aortic regurgitation Mild tricuspid regurgitation Mild pulmonary hypertension Mild to moderate pulmonic regurgitation Trace pericardial effusion is seen No comparison studies are Camilo Garner MD (Electronically Signed) Final Date: 10 July 2022 06:11 S
[2022-07-09 16:51] LABS: Troponin T (5th) Once 64 ng/L (0-15)
--- NOTE | 2022-07-09 16:55 | ECG_ITS ---
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 Measurements Intervals [place] Rate: 74 P: -59 DE: 111 QRS: 109 QRSD: 142 T: 34 QT: 458 QTc: 509 Interpretive Statements SINUS RHYTHM WITH SHORT DE INTERVAL WITH FREQUENT VENTRICULAR PREMATURE COMPLEXES RIGHT AXIS DEVIATION [QRS AXIS > 100] RIGHT BUNDLE BRANCH BLOCK [120+ ms QRS DURATION, UPRIGHT V1, 40+ ms S IN I/aVL/V4/V5/V6] ST DEPRESSION, CONSIDER SUBENDOCARDIAL INJURY [0.1+ mV ST DEPRESSION] Compared to ECG 07/09/2022 12:41:39 Short DE interval now present Right-axis deviation now present ST (T wave) deviation now present Atrial fibrillation no longer present Aberrant conduction of supraventricular beat(s) no longer present Left posterior fascicular block no longer present Electronically Signed On 07-10-2022 7:49:13 PUBLIC AFFAIRS SPECIALIST by Margarita Dunham M.D. [id number]
[2022-07-09] MEDS: potassium chloride ER 20 mEq Tablet PO (17:27)
[2022-07-09 17:30] LABS: Troponin T (5th) Once 62 ng/L (0-15)
[2022-07-09 17:59] LABS: D Dimer 4.32 ug/mIFEU (0-0.59)
[2022-07-09] MEDS: FUROsemide 10 mg/mL SDV 4mL 40 MG IVP (23:11)
[2022-07-10] VITALS (11 sets, daily range): BP systolic 108–132; BP diastolic 65–77; PULSE 72–89; RESP 14–24; TEMP 36.4–36.9; O2SAT 87–94
[2022-07-10] MEDS: potassium chloride ER 20 mEq Tablet PO ×2 (05:07→17:05)
[2022-07-10 06:29] LABS: Basophils % 0.1 %; Hematocrit 35.5 % (42.0-52.0); Hemoglobin 9.8 g/dL (11.7-16.6); Lymphocytes # 0.9 10^3/uL (0.8-4.8); Lymphocytes % 8.3 %; Mean Corpuscular HGB Conc 27.6 g/dL (30.0-36.0); Mean Corpuscular Hemoglobin 25.2 pg (28.0-34.0); Mean Corpuscular Volume 91.3 fl (80-94); Mean Platelet Volume 11.9 fL (7.4-10.4); Monocytes # 0.6 10^3/uL (0.2-0.9); Monocytes % 5.6 %; Neutrophils # 9.65 10^3/uL (1.8-7.7); Neutrophils % 85.4 %; Nucleated Red Blood Cells % 0 %; Platelet Count 212 10^3/cmm (130-400); Red Blood Count 3.89 10^6/uL (4.1-5.3); Red Cell Distribution Width 16.2 % (12.1-15.1); White Blood Count 11.3 10^3/uL (4.0-10.0)
[2022-07-10 06:48] LABS: INR 1.17 (0.8-1.2)
[2022-07-10 06:49] LABS: Partial Thromboplastin Time 33.3 SECONDS (23.9-36.7)
[2022-07-10 06:56] LABS: Estmated Average Glucose 111; Hemoglobin A1C 5.5 % (4.0-6.0)
[2022-07-10 07:01] LABS: Anion Gap 15.3 (5-19); Blood Urea Nitrogen 19 mg/dL (8-23); Calcium 9.5 mg/dL (8.5-10.5); Carbon Dioxide 28 mmol/L (22-29); Chloride 102 mmol/L (98-107); Chol HDL Ratio 3.94 mg/dL (1.0-5.00); Cholesterol 126 mg/dL (0-200); Glucose 110 mg/dL (65-115); HDL Cholesterol 32 mg/dL (60-100); Iron 21 ug/dL (59-158); LDL Cholesterol Calculated 75 mg/dL (50-129); LDL HDL Ratio 2.34 RATIO (0.00-3.22); Magnesium 2.1 mg/dL (1.7-2.3); Osmolality Calculated 295 mOsm/kg (285-295); Percent Saturation 6.2 % (20-50); Phosphorus 3.5 mg/dL (2.5-4.5); Potassium 4.3 mmol/L (3.5-5.1); Sodium 141 mmol/L (136-145); Thyroid Stimulating Hormone 1.15 uIU/mL (0.27-4.20); Total Iron Binding Capacity 337 mcg/dl; Triglycerides 97 mg/dL (0-150); Unsaturated Iron Binding 316 ug/dL (112-347)
--- NOTE | 2022-07-10 08:17 | ECG_ITS ---
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 Measurements Intervals [place] Rate: 80 P: 0 DC: 0 QRS: 112 QRSD: 132 T: -20 QT: 440 QTc: 508 Interpretive Statements ATRIAL FIBRILLATION RIGHT BUNDLE BRANCH BLOCK [120+ ms QRS DURATION, UPRIGHT V1, 40+ ms S IN I/aVL/V4/V5/V6] LEFT POSTERIOR FASCICULAR BLOCK [QRS AXIS > 109, INFERIOR Q] ST DEPRESSION, CONSIDER SUBENDOCARDIAL INJURY [0.1+ mV ST DEPRESSION] Compared to ECG 07/09/2022 17:49:56 Left posterior fascicular block now present Sinus rhythm no longer present Short [place] interval no longer present Right-axis deviation no longer present ST (T wave) deviation still present Electronically Signed On 07-10-2022 14:52:02 WATCH TRAIN ASSEMBLER by Camilo Garner M.D. [id number]
[2022-07-10] MEDS: lisinopril 10 mg Tablet PO (08:42)
[2022-07-10] MEDS: docusate sodium 100 mg Capsule PO ×2 (08:42→17:04)
[2022-07-10] MEDS: metOLazone 5 MG Tablet PO (08:42)
[2022-07-10] MEDS: tamsulosin 0.4 mg Capsule PO (08:42)
[2022-07-10] MEDS: pantoprazole DR 40 mg Tablet PO (08:42)
[2022-07-10 09:09] LABS: Ferritin 21 ng/mL (30-400)
[2022-07-10 09:18] LABS: Troponin(5th) Baseline 100 ng/L (0-15)
[2022-07-10 11:34] LABS: Troponin 5 2HR 105.2 ng/L (0-15); Troponin 5 2HR Delta 5.2 ABS# (0-10)
[2022-07-10] MEDS: FUROsemide 10 mg/mL SDV 4mL 40 MG IVP ×2 (12:32→20:26)
--- NOTE | 2022-07-10 12:43 | CTR_ITS ---
PROCEDURE INFORMATION: Exam: CTA Chest With Contrast Exam date and time: 07/11/2022 5:05 AM Age: 82 years old Clinical indication: Abnormal findings; Abnormal diagnostic tests; Elevated d-dimer; Shortness of breath; Prior surgery; Surgery type: Cabg; Patient HX: Severe SOB with elevated d dimer. History of chf. TECHNIQUE: Imaging protocol: Computed tomographic angiography of the chest with contrast. 3D rendering (Not supervised by radiologist): MIP and/or 3D reconstructed images were created by the technologist. Radiation optimization: All CT scans at this facility use at least one of these dose optimization techniques: automated exposure control; mA and/or kV adjustment per patient size (includes targeted exams where dose is matched to clinical indication); or iterative reconstruction. Contrast material: OMNI 350; Contrast volume: 85 ml; Contrast route: INTRAVENOUS (IV); Other protocol: This patient has received 0 known CTs and 0 known cardiac nuclear medicine studies in the 12 months prior to the current study. COMPARISON: CT chest w con* [id number] 05/28/2018 10:24 AM RADIATION DOSE METRICS: Total DLP (mGy-cm): 519.67 FINDINGS: Pulmonary arteries: Suboptimal opacification of the small peripheral pulmonary arteries, possibly secondary to decreased cardiac output. No definite vascular intraluminal filling defects to suggest acute pulmonary embolism. Aorta: Unopacified diffusely ectatic, tortuous and calcified thoracic aorta. Veins: Reflux of contrast into IVC and hepatic veins. Lungs: Interstitial pulmonary edema. Posterior bilateral upper lobe, right middle lobe and bilateral lower lobe atelectasis and volume loss. Upper lung zone emphysema with biapical bulla right greater than left. Right upper lobe calcified granulomas. Pleural spaces: Moderate to large bilateral pleural effusions with appearance of pleural loculations. No pneumothorax. Heart: Heart size is enlarged. Coronary arteries: Prior CABG. Lymph nodes: Calcified right hilar and subcarinal lymph nodes. Small nonspecific noncalcified mediastinal lymph nodes. Bones/joints: Sternotomy wires are seen. Mild thoracic kyphosis, spondylosis and degenerative bony changes. Soft tissues: Bilateral flank superficial soft tissue edema. CT/CT angio chest PE protcl [id number] IMPRESSION: 1. No definite vascular intraluminal filling defects to suggest acute pulmonary embolism. 2. Cardiomegaly, interstitial pulmonary edema and moderate to large bilateral pleural effusions. 3. Posterior bilateral upper lobe, right middle lobe and bilateral lower lobe atelectasis and volume loss. 4. Upper lung zone emphysema with biapical bulla right greater than left. 5. Atherosclerotic vascular disease and prior CABG.
--- NOTE | 2022-07-10 12:46 | PM.PN ---
Subjective Subjective: - Patient was examined multiple throughout the morning -Early in the morning he was on 10 L OxiMax, complaining of shortness of breath, he was short of breath with a few words, slight intercostal retractions, nasal flaring -He tells me that he wants to know what is going on in the hospital, he tells me that he feels that he is left in the dark -I advised him that currently he is in respiratory failure, secondary to CHF, he is fluid overloaded, worried about his heart as his heart function is down to 40% -I am also worried that he continues to have a slow GI bleed as his hemoglobin is 9.8 and the attending could have iron deficiency anemia -He does have a history of smoking his chest x-ray does seem to suggest pulmonary fibrosis on wondering if the pulmonary fibrosis playing a role as he is wheezing in his lung vera -He was quite agitated with his oxygen mask and ripped it off, his O2 sats dropped in the low 80s, I was able to have nursing staff place him on heated high flow -Patient was reexamined as he was telling nursing staff he was ready to go, he was done with all this -I talked to patient in detail, he does not want to have aggressive interventions, he wants to remain DNR/DNI -He tells me that he feels that it is his time, and he does not want to suffer -He does not want us to continue medical interventions, he wants to see if he could clinically improve with some of our medical interventions but he does not want to have aggressive interventions, does not want to have dialysis, does not want to have any other aggressive interventions such as chest compressions or intubation -He wants to do a trial of medical therapy however it is time to go he wants to go, he wants to go to his Lord -I discussed with him we will continue medical intervention but if his condition deteriorates, then we can certainly pursue full comfort care -He is complaining severe pain, back pain I advised we can do partial comfort care to place him on morphine for air hunger for pain but continue medical intervention -I advised him that currently his status is critical as he is on 90% FiO2, he has evidence of fluid overload pulmonary edema, pulmonary fibrosis, GI bleed he is quite ill he also has A. fib but we can do medical therapy, see if he can clinically improve -However if he can start to clinically decline, or starts to suffer that we can pursue full comfort care -Discussed risks and benefits, he voiced understanding, all questions answered, agreed to proceed -I also spoke to patient's granddaughter Kylie discussed patient's critical status, she is coming to the hospital to see her grandfather, discussed his clinical findings she voiced understanding, all questions answered Vitals/I&O/Wt Last Vital Signs Temp 97.8 F 07/10/22 08:00 Pulse 82 07/10/22 09:57 Resp 22 H 07/10/22 09:57 BP 119/75 07/10/22 08:00 Pulse Ox 87 L 07/10/22 09:57 O2 Del Method 07/10/22 03:48 O2 Flow Rate 40 07/10/22 09:57 FiO2 90 07/10/22 09:57 07/09/22 07/10/22 07/10/22 22:59 06:59 14:59 Output Total 800 / 1300 400 / 1700 200 / 200 Balance -800 / -1300 -400 / -1700 -200 / -200 Weight last 48 hrs Weight 64.552 kg Weight 65.317 kg Weight 67.585 kg Physical Exam Const: COMMON NORMALS: no acute distress and patient oriented x3 Resp: COMMON NORMALS: normal respiratory effort AUSCULTATION: crackles and rales OTHER: Short of breath with a few words, slight sensory muscle use, intercostal substernal retractions, nasal flaring tachypneic Cardio: COMMON NORMALS: regular rhythm, S1 normal heart sound present and S2 normal heart sound present RATE: tachycardic RHYTHM: regular rhythm and abnormal rhythm HEART SOUNDS: S1 normal heart sound present and S2 normal heart sound present GI: COMMON NORMALS: Normal to inspection, nondistended, normoactive bowel sounds present and non-tender Extremity: NARRATIVE EXTREMITY EXAM: 2+ pitting edema bilateral lower extremity Neuro: COMMON NORMALS: patient oriented x3 Psych: COMMON NORMALS: mental status grossly normal Data 07/10/22 05:49 07/10/22 05:49 Micro: Microbiology 07/09/22 13:02 Urine Culture - Preliminary Urine,Clean Catch A&P Assessment and plan (1) Acute respiratory failure with hypoxia: (2) Pulmonary fibrosis: (3) COPD (chronic obstructive pulmonary disease): (4) Acute exacerbation of CHF (congestive heart failure): (5) Ischemic cardiomyopathy: (6) GI bleed: (7) Iron deficiency anemia: (8) Atrial fibrillation: (9) Physical deconditioning: (10) Protein calorie malnutrition: (11) NSTEMI (non-ST elevated myocardial infarction): (12) Hypertension: (13) Goals of care, counseling/discussion: Plan Acute hypoxic respiratory failure -Declines ICU admission, declines aggressive mentions, declines intubation and mechanical ventilation -Has evidence of moderate respiratory distress nasal flaring intercostal retractions short of breath with a few sentences of 90% FiO2 -Currently on heated high flow, 90% FiO2 -Monitor respiratory status closely -If patient's condition starts to decline will pursue full comfort care -Morphine 1 mg every 4 hours for air hunger -DNR/DNI -SCDs for DVT prophylaxis Lovenox relatively contraindicated given GI bleed Acute systolic and diastolic CHF exam probation -Clinically fluid overloaded, 2+ pitting edema, crackles on exam, chest x-ray showing fluid overload, elevated BNP -Place Maloney catheter -Lasix 40 IV every 8 hours -1 dose metolazone -Monitor creatinine potassium magnesium -Monitor respiratory status closely Possible pulmonary fibrosis exacerbation? -Chest x-ray seems to suggest that he might have a component of pulmonary fibrosis CT angiogram of the chest ordered as he has elevated D-dimer COPD exacerbation, history of smoking, continue Solu-Medrol 60 every 8 hours, budesonide, ipratropium also continue broad-spectrum antibiotic therapy vancomycin, cefepime until infection can be ruled out NSTEMI -With history of CAD -Serial EKGs serial troponins telemetry monitoring -Cardiac echocardiogram shows LV systolic function is mildly reduced with EF 40 to 45%. ?Mild to moderate hypokinesis of anterior and anterolateral lim ?is seen. ?Right ventricle is mildly hypokinetic. ?Mild to moderate mitral regurgitation ?Mild aortic regurgitation ?Mild tricuspid regurgitation ?Mild pulmonary hypertension ?Mild to moderate pulmonic regurgitation ?Trace pericardial effusion is seen ?No comparison studies are -Patient does not want to have aggressive interventions monitor telemetry, monitor troponins aspirin, statin, beta-robert -Cannot place on blood thinners as patient has a history of significant GI bleed, anemia Ischemic cardiomyopathy, as above History of GI bleed, recently admitted to [facility], received blood transfusions, left AGAINST MEDICAL ADVICE -Records indicate Hemoccult positive stool, hemoglobin 6.2, patient describes melena -Here he has has iron deficiency anemia -Hold all blood thinners -Start on IV Venofer here Atrial fibrillation, currently rate is controlled remains in A. fib, not on anticoagulation Currently his prognosis is guarded, status is critical Attestations Medical Necessity Statement*: Patient requires hospitalization, inpatient, greater than 2 midnights, for acute hypoxic respiratory failure, pulmonary fibrosis exacerbation, COPD exacerbation, CHF exacerbation, NSTEMI, cardiomyopathy acute respiratory failure Critical Care Time: 50 Coding Level of Care Code Acute Code for [facility] Fwd Diagnoses Acute respiratory failure with hypoxia J96.01 Pulmonary fibrosis J84.10 COPD (chronic obstructive pulmonary disease) J44.9 Acute exacerbation of CHF (congestive heart failure) I50.9 Ischemic cardiomyopathy I25.5 GI bleed K92.2 Iron deficiency anemia D50.9 Atrial fibrillation I48.91 Physical deconditioning R53.81 Protein calorie malnutrition E46 NSTEMI (non-ST elevated myocardial infarction) I21.4 Hypertension I10 Goals of care, counseling/discussion Z71.89
--- NOTE | 2022-07-10 13:10 | ECG_ITS ---
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 Measurements Intervals [place] Rate: 81 P: 0 KS: 0 QRS: 113 QRSD: 128 T: -23 QT: 423 QTc: 494 Interpretive Statements ATRIAL FIBRILLATION RIGHT AXIS DEVIATION [QRS AXIS > 100] RIGHT BUNDLE BRANCH BLOCK [120+ ms QRS DURATION, UPRIGHT V1, 40+ ms S IN I/aVL/V4/V5/V6] ST DEPRESSION, CONSIDER SUBENDOCARDIAL INJURY [0.1+ mV ST DEPRESSION] Compared to ECG 07/10/2022 09:46:55 Right-axis deviation now present Left posterior fascicular block no longer present ST (T wave) deviation still present Electronically Signed On 07-10-2022 14:52:33 ENERGY AND SUSTAINABILITY MANAGER by Camilo Garner M.D. [id number]
[2022-07-10] MEDS: iron sucrose 200 MG in sodium chloride 0.9% (100 ml) 100 ML 220 MG IV (13:13)
--- NOTE | 2022-07-10 13:23 | PC.CHAP ---
Pastoral Care Encounter/Spiritual Assessment Type of Contact [] Declined cold press operator visit [] Patient/Family/Request visit [] Outpatient visit [] Follow-up visit [] Physician referral [] Code/Alert [x] Routine visit [] Staff referral [] Actively dying [] Patient sleeping [x] Family support [] [] Out of room [] Palliative care [] [] Receiving care in room [] Pre-surgical visit [] Trauma [] Long length of stay [] ICU visit [] Other: Relational/Emotional Strength [x] Patient feels connected with others/family/visitors/staff [] Distress [] Loneliness/isolation [] Abandonment Spirituality of Patient x [x] Person of Rosaura [] Attends Muslim of their Rosaura [x] Believes in Prayer [] Reads Bible or Religion materials [] There are Spiritual issues to be addressed Maintenance Painter Interventions [x] Prayer [x] Active listening [x] Non-anxious presence [] Spiritual/emotional support [] Crisis/trauma care [] Spiritual counseling [] Bereavement support [] Provided bereavement packet [] Provided Bible/devotional materials [] Provided toy/stuffed animal, coloring book to patient or family member [] Provided Communion [] Anointing/T[place]stoy [] Salvation [x] Completed spiritual assessment [] Other: Impact on Illness or Injury [] Angry [] Fearful [] Anxious [] Often cries [] Exhaustion [] Unable to work [] Unable to attend taoism [] Unable to walk/stand [] Unable to read [] Unable to drive [] Unable to eat/drink [] Unable to sleep [] Unable to be with family [] Patient intubated [] Other: Summary Time spent with patient
--- NOTE | 2022-07-10 14:17 | ECG_ITS ---
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 Measurements Intervals [place] Rate: 83 P: 0 MT: 0 QRS: 104 QRSD: 133 T: -15 QT: 440 QTc: 520 Interpretive Statements ATRIAL FIBRILLATION RIGHT AXIS DEVIATION [QRS AXIS > 100] RIGHT BUNDLE BRANCH BLOCK [120+ ms QRS DURATION, UPRIGHT V1, 40+ ms S IN I/aVL/V4/V5/V6] ST DEPRESSION, CONSIDER SUBENDOCARDIAL INJURY [0.1+ mV ST DEPRESSION] Compared to ECG 07/10/2022 13:10:16 ST (T wave) deviation still present Electronically Signed On 07-11-2022 9:32:31 FINAL INSPECTOR MOVEMENT ASSEMBLY by Camilo Garner M.D. [id number]
[2022-07-10] MEDS: vancomycin 1,000 MG in sodium chloride 0.9% 250 ML 250 MG IV (14:26)
[2022-07-10] MEDS: aspirin 81 mg EC Tablet PO (14:26)
[2022-07-10] MEDS: cefepime 1,000 MG in sodium chloride 0.9% (plus) 50 ML 100 MG IV (14:27)
[2022-07-10 14:45] LABS: Troponin 5 6HR Delta 1.5 ng/L (0-12)
[2022-07-10 14:46] LABS: Troponin 5 6HR 101.5 ng/L (0-15)
[2022-07-10] MEDS: albuterol 2.5 mg/3 mL Neb INHALATION ×2 (15:18→21:16)
[2022-07-10] MEDS: ipratropium 0.5 mg/2.5 mL Neb INHALATION ×2 (15:18→21:15)
[2022-07-10] MEDS: pantoprazole 40 mg SDV IVP (17:04)
[2022-07-10] MEDS: sucralfate 1 gm Tablet PO (17:04)
[2022-07-10] MEDS: atorvastatin 40 mg Tablet PO (20:26)
[2022-07-10] MEDS: budesonide 0.5 mg/2 mL Neb INHALATION (21:15)
[2022-07-11] VITALS (18 sets, daily range): BP systolic 87–107; BP diastolic 54–74; PULSE 90–126; RESP 14–22; TEMP 36.4–36.7; O2SAT 88–94
[2022-07-11] MEDS: morphine 4 mg/mL SDV 1 mL 1 MG IVP (00:03)
[2022-07-11] MEDS: cefepime 1,000 MG in sodium chloride 0.9% (plus) 50 ML 100 MG IV ×2 (02:28→13:07)
[2022-07-11] MEDS: albuterol 2.5 mg/3 mL Neb INHALATION ×4 (03:24→20:41)
[2022-07-11] MEDS: ipratropium 0.5 mg/2.5 mL Neb INHALATION ×4 (03:24→20:50)
[2022-07-11 04:49] LABS: Basophils % 0.1 %; Hematocrit 31.8 % (42.0-52.0); Hemoglobin 9.1 g/dL (11.7-16.6); Lymphocytes # 0.4 10^3/uL (0.8-4.8); Lymphocytes % 3.9 %; Mean Corpuscular HGB Conc 28.6 g/dL (30.0-36.0); Mean Corpuscular Hemoglobin 25.4 pg (28.0-34.0); Mean Corpuscular Volume 88.8 fl (80-94); Mean Platelet Volume 12.7 fL (7.4-10.4); Monocytes # 0.3 10^3/uL (0.2-0.9); Monocytes % 2.8 %; Neutrophils # 9.35 10^3/uL (1.8-7.7); Neutrophils % 92.6 %; Nucleated Red Blood Cells % 0 %; Platelet Count 199 10^3/cmm (130-400); Red Blood Count 3.58 10^6/uL (4.1-5.3); Red Cell Distribution Width 16.3 % (12.1-15.1); White Blood Count 10.1 10^3/uL (4.0-10.0)
[2022-07-11 05:07] LABS: Anion Gap 19.2 (5-19); Blood Urea Nitrogen 28 mg/dL (8-23); Calcium 8.9 mg/dL (8.5-10.5); Carbon Dioxide 25 mmol/L (22-29); Chloride 100 mmol/L (98-107); Glucose 154 mg/dL (65-115); Osmolality Calculated 299 mOsm/kg (285-295); Phosphorus 3.7 mg/dL (2.5-4.5); Potassium 4.2 mmol/L (3.5-5.1); Sodium 140 mmol/L (136-145)
[2022-07-11] MEDS: iohexol 350 mg/mL 500 mL Btl (per mL) IV (05:15)
[2022-07-11] MEDS: potassium chloride ER 20 mEq Tablet PO ×2 (05:29→15:45)
[2022-07-11] MEDS: sucralfate 1 gm Tablet PO ×2 (05:29→17:41)
[2022-07-11] MEDS: pantoprazole 40 mg SDV IVP ×2 (05:31→17:41)
[2022-07-11] MEDS: FUROsemide 10 mg/mL SDV 4mL 40 MG IVP ×3 (05:31→20:19)
[2022-07-11] MEDS: metOLazone 5 MG Tablet PO (07:54)
[2022-07-11] MEDS: docusate sodium 100 mg Capsule PO ×2 (08:00→17:42)
[2022-07-11] MEDS: tamsulosin 0.4 mg Capsule PO (08:00)
[2022-07-11] MEDS: budesonide 0.5 mg/2 mL Neb INHALATION ×2 (08:14→20:41)
--- NOTE | 2022-07-11 10:27 | PM.PN ---
Subjective Subjective: Patient was seen this morning, he does feel better, still on 90% FiO2, he tells me he wants to try to get home on hospice, on comfort care, however feels weak, still short of breath, I advised him that he is on 90% FiO2 certainly we could try to get him home on hospice but it will be difficult there is a high risk of him expiring during the process transit, and at home, given his high oxygen requirements, he wants to continue medical therapy to see how he does clinically if his ox requirements can decrease however if he start to clinically deteriorate he wants to pursue full comfort care, Vitals/I&O/Wt Last Vital Signs Temp 97.6 F 07/11/22 08:00 Pulse 112 H 07/11/22 08:19 Resp 20 H 07/11/22 08:17 BP 96/65 07/11/22 08:00 Pulse Ox 90 07/11/22 08:17 O2 Del Method 07/11/22 08:17 O2 Flow Rate 35 07/11/22 08:17 FiO2 90 07/11/22 08:17 07/10/22 07/11/22 07/11/22 22:59 06:59 14:59 Intake Total 410 / 410 50 / 460 200 / 200 Output Total 1200 / 1400 175 / 1575 Balance -790 / -990 -125 / -1115 200 / 200 Weight last 48 hrs Weight 65.119 kg Weight 64.552 kg Weight 65.317 kg Weight 67.585 kg Physical Exam Const: COMMON NORMALS: no acute distress Resp: COMMON NORMALS: normal respiratory effort, No retractions and No use of accessory muscles AUSCULTATION: crackles Cardio: COMMON NORMALS: regular rate, regular rhythm, S1 normal heart sound present and S2 normal heart sound present RATE: regular rate RHYTHM: regular rhythm HEART SOUNDS: S1 normal heart sound present and S2 normal heart sound present GI: COMMON NORMALS: Normal to inspection, nondistended, normoactive bowel sounds present and non-tender Extremity: COMMON NORMALS: no pedal edema Psych: COMMON NORMALS: mental status grossly normal Urinary Catheter Management: Maloney: Cath Placed During This Visit: yes Reason for Continuing Indwelling Catheter: Accurate Measurement of Urinary Output in Critically Ill Patients Urinary Catheter Date of Insertion: 07/10/22 Urinary Catheter Time of Insertion: 14:50 Data 07/11/22 04:27 07/11/22 04:27 Micro: Microbiology 07/09/22 13:02 Urine Culture - Final Urine,Clean Catch A&P Assessment and plan (1) Acute respiratory failure with hypoxia: (2) Pulmonary fibrosis: (3) COPD (chronic obstructive pulmonary disease): (4) Acute exacerbation of CHF (congestive heart failure): (5) Ischemic cardiomyopathy: (6) GI bleed: (7) Iron deficiency anemia: (8) Atrial fibrillation: (9) Physical deconditioning: (10) Protein calorie malnutrition: (11) NSTEMI (non-ST elevated myocardial infarction): (12) Hypertension: (13) Goals of care, counseling/discussion: Plan Hospice -Wants to try to go home on hospice, hospice consult we will try to medically optimize him to go home Acute hypoxic respiratory failure -Declines ICU admission, declines aggressive mentions, declines intubation and mechanical ventilation -Has evidence of moderate respiratory distress nasal flaring intercostal retractions short of breath with a few sentences of 90% FiO2 -Currently on heated high flow, 90% FiO2 -Monitor respiratory status closely -If patient's condition starts to decline will pursue full comfort care -Morphine 1 mg every 4 hours for air hunger -DNR/DNI -SCDs for DVT prophylaxis Lovenox relatively contraindicated given GI bleed Acute systolic and diastolic CHF exam probation -Clinically fluid overloaded, 1+ pitting edema, crackles on exam, chest x-ray showing fluid overload, elevated BNP -Place Maloney catheter -Lasix 40 IV every 8 hours -1 dose metolazone -Monitor creatinine potassium magnesium -Monitor respiratory status closely Possible pulmonary fibrosis exacerbation? -Chest x-ray seems to suggest that he might have a component of pulmonary fibrosis CT angiogram of the chest ordered as he has elevated D-dimer COPD exacerbation, history of smoking, continue Solu-Medrol 60 every 8 hours, budesonide, ipratropium also continue broad-spectrum antibiotic therapy vancomycin, cefepime until infection can be ruled out NSTEMI -With history of CAD -Serial EKGs serial troponins telemetry monitoring -Cardiac echocardiogram shows LV systolic function is mildly reduced with EF 40 to 45%. ?Mild to moderate hypokinesis of anterior and anterolateral lim ?is seen. ?Right ventricle is mildly hypokinetic. ?Mild to moderate mitral regurgitation ?Mild aortic regurgitation ?Mild tricuspid regurgitation ?Mild pulmonary hypertension ?Mild to moderate pulmonic regurgitation ?Trace pericardial effusion is seen ?No comparison studies are -Patient does not want to have aggressive interventions monitor telemetry, monitor troponins aspirin, statin, beta-robert -Cannot place on blood thinners as patient has a history of significant GI bleed, anemia Ischemic cardiomyopathy, as above History of GI bleed, recently admitted to [facility], received blood transfusions, left AGAINST MEDICAL ADVICE -Records indicate Hemoccult positive stool, hemoglobin 6.2, patient describes melena -Here he has has iron deficiency anemia -Hold all blood thinners -Start on IV Venofer here Atrial fibrillation, currently rate is controlled remains in A. fib, not on anticoagulation Currently his prognosis is guarded, status is critical I updated patient's niece about his clinical status Attestations Medical Necessity Statement*: Patient requires surgery for acute hypoxic respiratory failure, CHF exacerbation, NSTEMI, Coding Level of Care Code Acute Code for [facility] Fwd Diagnoses Acute respiratory failure with hypoxia J96.01 Pulmonary fibrosis J84.10 COPD (chronic obstructive pulmonary disease) J44.9 Acute exacerbation of CHF (congestive heart failure) I50.9 Ischemic cardiomyopathy I25.5 GI bleed K92.2 Iron deficiency anemia D50.9 Atrial fibrillation I48.91 Physical deconditioning R53.81 Protein calorie malnutrition E46 NSTEMI (non-ST elevated myocardial infarction) I21.4 Hypertension I10 Goals of care, counseling/discussion Z71.89
[2022-07-11] MEDS: aspirin 81 mg EC Tablet PO (13:07)
[2022-07-11] MEDS: vancomycin 1,000 MG in sodium chloride 0.9% 250 ML 250 MG IV (13:15)
[2022-07-11] MEDS: iron sucrose 200 MG in sodium chloride 0.9% (100 ml) 100 ML 220 MG IV (14:10)
[2022-07-11] MEDS: metoprolol tartrate 1 mg/1 mL SDV 5 mL 5 MG IVP ×2 (16:33→22:13)
[2022-07-11] MEDS: atorvastatin 40 mg Tablet PO (20:19)
[2022-07-12] VITALS: PULSE 118; RESP 20; O2SAT 90
[2022-07-12] MEDS: cefepime 1,000 MG in sodium chloride 0.9% (plus) 50 ML 100 MG IV (00:03)
[2022-07-12] MEDS: ALPRAZolam 0.5 mg Tablet 0.25 MG PO (01:10)
[2022-07-12] MEDS: ipratropium 0.5 mg/2.5 mL Neb INHALATION (02:08)
[2022-07-12] MEDS: albuterol 2.5 mg/3 mL Neb INHALATION (02:08)
[2022-07-12 02:11] VITALS: PULSE 113; RESP 20; O2SAT 92
[2022-07-12 03:08] VITALS: BP 99/63; PULSE 120; RESP 21; TEMP 36.4; O2SAT 90
--- NOTE | 2022-07-12 04:19 | PC.NURSE ---
Patient showed v-fib on the monitor. Upon entering room patient was not breathing and had no pulse. Time of 316.
--- NOTE | 2022-07-12 04:22 | PC.NURSE ---
Multiple attempts to reach patient's next of kin (niece), No answer, voicemail was left.
--- NOTE | 2022-07-12 05:00 | PC.NURSE ---
0330 - notified physician and warehouse handler of pt passing. Multiple attempts to notify niece unsuccessful, message left. MTS notified and pt is not a candidate for organ donation and can be released. Hillary full at this time. Pt to remain in room until family can be reached per HS.
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
--- NOTE | 2022-07-12 07:47 | PC.NURSE ---
Spoke to Dina (niece) and notified her of pt passing. She will call in a few hours with the home choice. She also verified that she had taken home his wallet and stone yesterday.
--- NOTE | 2022-07-12 08:39 | PC.SOCIAL ---
Pg 2 IMM Explained to pt Pg 2 IMM. No questions voiced. Provided pt a copy. Initialed, dated, & timed a copy & placed in chart.
--- NOTE | 2022-07-12 10:07 | PC.SOCIAL ---
Patient's niece Lana called back with the choice of [facility] in [facility], phone number [phone]. Updated Charge Nurse Mirella of this information.
--- NOTE | 2022-07-12 11:37 | PC.SOCIAL ---
Pt at 0317 this AM.
== END 2022-07-12 11:45 | disposition expired ==
LOC: ER 14:16 → MEDSURG 15:07
PROVIDERS: Admitting Provider Hospitalist; Emergency Provider Family Medicine; PCP Family Medicine; Visit Provider Family Medicine
DX: I11.0 Hypertensive heart disease with heart failure (principal); I50.21 Acute systolic (congestive) heart failure; I21.4 Non-ST elevation (NSTEMI) myocardial infarction; J80 Acute respiratory distress syndrome; J44.1 Chronic obstructive pulmonary disease with (acute) exacerbation; E46 Unspecified protein-calorie malnutrition; J84.10 Pulmonary fibrosis, unspecified; I25.5 Ischemic cardiomyopathy; D50.9 Iron deficiency anemia, unspecified; I48.91 Unspecified atrial fibrillation; Z68.20 Body mass index [BMI] 20.0-20.9, adult; I25.10 Atherosclerotic heart disease of native coronary artery without angina pectoris; Z95.1 Presence of aortocoronary bypass graft; N40.1 Benign prostatic hyperplasia with lower urinary tract symptoms; R39.15 Urgency of urination; R35.0 Frequency of micturition; Z66 Do not resuscitate; I73.9 Peripheral vascular disease, unspecified; Z51.5 Encounter for palliative care; R31.29 Other microscopic hematuria; F17.210 Nicotine dependence, cigarettes, uncomplicated; I49.01 Ventricular fibrillation
CPT/HCPCS: 36415; 36600; 51702; 71045; 71275; 80048; 80053; 80061; 81001; 82728; 82803; 83036; 83540; 83550; 83735; 83880; 84100; 84443; 84484; 85025; 85378; 85610; 85730; 87086; 87641; 93005; 93306; 94640; 96374; 99285; C9113; J0692; J1756; J1940; J2270; J2930; J3370; J3490; J7050; J7613; J7626; J7644; Q9967